=== PATIENT | female | born 1960 | race Caucasian/White ===

== ENCOUNTER 2024-04-23 15:28 | Emergency (ER) | payer OTHER, SELFPAY ==
[2024-04-23] VITALS (25 sets, daily range): BP systolic 121–163; BP diastolic 80–99; PULSE 79–94; RESP 16–20; TEMP 36.9; O2SAT 95–98; BMI 32.7
[2024-04-23] MEDS: 0.9 % SODIUM CHLORIDE 1000 ml 1,000 ML IV (16:34)
[2024-04-23] MEDS: INSULIN INF 100 UNIT/100 ML 100 UNIT/100 ML BAG 6.5 UNIT IVPB (16:35)
[2024-04-23] MEDS: INSULIN REGULAR, HUMAN 100 UNIT/ML VIAL 8 UNIT IVP (16:38)
[2024-04-23 16:45] LABS: Appearance Urine Turbid (Clear); Bilirubin Urine Negative (Negative); Blood Urine Negative (Negative); Color Urine Yellow (Yellow); Glucose Urine 2+ (Negative); Ketones Urine Trace (Negative); Leukocyte Esterase Urine Negative (Negative); Nitrite Urine Negative (Negative); Protein Urine 2+ (Negative); Specific Gravity Urine 1.015 (1.000-1.030); Urobilinogen Urine 0.2 (0.2-1.0)
[2024-04-23 16:58] LABS: HCO3 VBG 22 mmol/L (21-28); PCO2 VBG 42 mmHG (40-50); PO2 VBG 49.6 mmHG (25-47); pH VBG 7.335 (7.32-7.43)
[2024-04-23 16:59] LABS: Basophils Absolute Auto 0.03 K/uL (0.00-0.30); Basophils Percent Auto 0.4 % (0.0-3.0); Eosinophils Percent Auto 1.3 % (0.0-7.0); Hematocrit 43.5 % (33.0-51.0); Hemoglobin* 14.8 gm/dL (12.0-16.0); Immature Granulocytes Abs Auto 0.08 K/uL (0.00-0.30); Lymphocytes Absolute Auto 2.14 K/uL (0.90-2.90); Lymphocytes Percent Auto 27.4 % (20-44); Mean Corpuscular HGB Conc 34 gm/dL (32-36); Mean Corpuscular Hemoglobin 30 pg (26-34); Mean Corpuscular Volume 89 fL (80-100); Monocytes Percent Auto 6.8 % (0.0-11.0); Neutrophils Absolute Auto 4.94 K/uL (1.7-7.0); Neutrophils Percent Auto 63.1 % (42.0-72.0); Platelet Count* 202 K/uL (140-440); RDW Coefficient of Variation % 12.9 % (11.5-15.5); Red Blood Count 4.89 m/uL (4.00-5.20); White Blood Count* 7.82 K/uL (4.50-11.00)
[2024-04-23 17:04] LABS: Bacteria Urine Few; RBC Urine 0-2 (0-2); Squamous Epithelial Cell Urine Few (None-Few)
[2024-04-23 17:04] LABS: Lactate* 3.8 mmol/L (0.5-1.9)
[2024-04-23 17:05] LABS: Slide Review Reflex No
[2024-04-23 17:15] LABS: Albumin* 4.8 g/dL (3.3-5.0); Chloride* 99 mmol/L (96-114)
[2024-04-23 17:16] LABS: Potassium* 4.9 mmol/L (3.6-5.1); Sodium* 130 mmol/L (135-149)
[2024-04-23 17:18] LABS: Creatinine* 0.5 mg/dL (0.5-1.5); Est. Creatinine Clearance* 57.33; Estimated Glomerular Filt Rate 105 ml/min
[2024-04-23 17:19] LABS: Alanine Aminotransferase* 26 U/L (4-35); Alkaline Phosphatase* 138 U/L (40-150); Anion Gap 11 mEq/L (7-15); Aspartate Amino Transferase* 24 U/L (12-35); Bilirubin Direct* 0.3 mg/dL (0.0-0.5); Bilirubin Total* 1.2 mg/dL (0.1-1.5); Blood Urea Nitrogen* 28 mg/dL (7-30); Calcium* 10.4 mg/dL (8.4-10.6); Carbon Dioxide* 20 mmol/L (20-32); Magnesium* 1.9 mg/dL (1.5-2.6); Total Protein* 8.1 g/dL (6.0-8.3)
[2024-04-23 17:22] LABS: C Reactive Protein* 0.5 mg/dL (0.5-1.0)
[2024-04-23 17:31] LABS: Glucose* 473 mg/dL (60-115)
[2024-04-23 17:32] LABS: Troponin I* < 0.01 ng/mL (0.01-0.04)
[2024-04-23 17:35] LABS: PCR FLU A Negative PCR FLU A (Negative); PCR FLU B Negative PCR FLU B (Negative); PCR RSV Negative PCR RSV (Negative); SARS PCR* Negative SARS-CoV-2 (Negative)
--- NOTE | 2024-04-23 18:24 | ED.GENADULT ---
HPI - General Adult General Chief complaint: Diabetic Related Problem Stated complaint: Hyperglycemia Time Seen by Provider: 04/23/24 15:35 Source: patient Mode of arrival: ambulatory Limitations: no limitations History of Present Illness HPI narrative: 64-year-old female presenting today with generalized not feeling well. Patient states that since yesterday she has been feeling increased fatigue, malaise, achiness from head to toe. She went to the urgent care today and her blood sugar was almost 600 so she was sent to the ER for further management. Patient states that she does have a history of type 2 diabetes however has not been on any medications since July of this year. Has not been checking her sugars. She denies fevers, chills. She has been feeling nauseated, no vomiting. She denies any diarrhea. She does have a history of constipation which is not new. She denies any urinary symptoms such as increased frequency, urgency or dysuria. She denies chest pain or shortness of breath. She has no abdominal discomfort. Related Data Home Medications ?Medication ?Instructions ?Recorded ?Confirmed albuterol sulfate 90 mcg/actuation 2 puff inhalation QID PRN wheezing 04/23/24 04/23/24 aerosol inhaler Previous Rx's ?Medication ?Instructions ?Recorded insulin glargine 100 unit/mL (3 20 unit (0.2 mL) subcut QPM #15 mL 04/23/24 mL) subcutaneous pen (Lantus Solostar U-100 Insulin) Allergies Allergy/AdvReac Type Severity Reaction Status Date / Time No Known Drug Allergies Allergy Verified 04/23/24 15:40 Review of Systems Status of ROS: Reports: 10 or more systems reviewed and unremarkable except as noted in History and below PFSH PFS Social History Smoking Status: Former smoker What tobacco products do you use: cigarettes Smoking packs per day: 2 Smoking cigarettes per day: 40.0 Years smoked: 20 Smoking pack-years: 40.00 Smoking quit date/years: <= 15 years ago Do you use any of these nicotine containing products: None Second hand tobacco smoke exposure: No How often do you have a drink containing alcohol: 2-3 times a week How many standard drinks containing alcohol do you have on a typical day: 1 or 2 How often do you have six or more drinks on one occasion: Never AUDIT-C Alcohol total score: 3 Non-prescribed substance use: denies use service: No Exam Narrative: Exam Narrative: Well-nourished well-developed patient in no acute distress. Alert and oriented. Answers questions appropriately. Mood and affect are appropriate. Thoughts are goal oriented and rational. No tangential or magical thinking noted. Patient speaks in full sentences without needing to catch her breath. Patient is hemodynamically stable. HEENT: Normocephalic atraumatic. Pupils are equally round reactive to light. Extraocular muscles are intact. Conjunctivae are moist without any icterus noted. Moist mucous membranes. Posterior pharynx is normal. Neck is soft without any lymphadenopathy or thyromegaly. No masses are appreciated. Cardiovascular: Heart is regular rate and rhythm S1 and S2 are present without any murmurs. Lungs: Clear to auscultation bilaterally no wheezes rhonchi or rales are appreciated. Patient takes deep breaths without any discomfort. Abdomen: Soft and nontender nondistended with normal bowel sounds. No guarding or rebound. No masses or organomegaly appreciated. Extremities: Bilateral lower extremities are without edema. Skin: Well perfused without any obvious rashes. Const: Vital Signs, click to edit/add: Vital Signs - 24 hr 04/23/24 15:35 04/23/24 15:45 04/23/24 16:39 Temperature 98.4 F Pulse Rate 88 Pulse Rate [Pulse Oximeter] 83 Respiratory Rate 18 Blood Pressure Blood Pressure [Ri ght Upper Arm] 163/99 H Pulse Oximetry 98 98 95 Oxygen Delivery Me thod Room Air 04/23/24 16:41 04/23/24 16:45 04/23/24 17:00 Temperature Pulse Rate 84 86 84 Pulse Rate [Pulse Oximeter] Respiratory Rate 20 Blood Pressure 139/80 Blood Pressure [Ri ght Upper Arm] Pulse Oximetry 96 97 95 Oxygen Delivery Me thod 04/23/24 17:02 04/23/24 17:15 04/23/24 17:22 Temperature Pulse Rate 85 84 88 Pulse Rate [Pulse Oximeter] Respiratory Rate 16 Blood Pressure 142/90 H 160/87 H Blood Pressure [Ri ght Upper Arm] Pulse Oximetry 96 96 97 Oxygen Delivery Me thod 04/23/24 17:23 04/23/24 17:30 04/23/24 17:41 Temperature Pulse Rate 94 84 87 Pulse Rate [Pulse Oximeter] Respiratory Rate 16 Blood Pressure 155/86 H Blood Pressure [Ri ght Upper Arm] Pulse Oximetry 97 96 96 Oxygen Delivery Mo thod 04/23/24 17:45 04/23/24 18:00 04/23/24 18:02 Temperature Pulse Rate 85 84 85 Pulse Rate [Pulse Oximeter] Respiratory Rate 16 Blood Pressure 153/92 H Blood Pressure [Ri ght Upper Arm] Pulse Oximetry 96 97 [facility] 18[facility]03 04/23/24 18:15 04/23/24 18:22 Temperature Pulse Rate 83 84 84 Pulse Rate [Pulse Oximeter] Respiratory Rate 16 Blood Pressure 152/93 H Blood Pressure [Ri ght Upper Arm] Pulse Oximetry 98 97 98 [facility] 04/23/24 18:30 04/23/24 18:41 04/23/24 18:45 Temperature Pulse Rate 83 82 81 Pulse Rate [Pulse Oximeter] Respiratory Rate 16 Blood Pressure 149/88 H Blood Pressure [Ri ght Upper Arm] Pulse Oximetry 98 97 98 [facility] 04/23/24 19:00 04/23/24 19:02 04/23/24 19:02 Temperature Pulse Rate 83 81 81 Pulse Rate [Pulse Oximeter] Respiratory Rate Blood Pressure 121/85 121/85 Blood Pressure [Ri ght Upper Arm] Pulse Oximetry 96 97 97 [facility] 04/23/24 19:15 04/23/24 19:30 Temperature Pulse Rate 79 81 Pulse Rate [Pulse Oximeter] Respiratory Rate Blood Pressure Blood Pressure [Ri ght Upper Arm] Pulse Oximetry 95 97 [facility] Course ED Course: EKG, read by me, shows normal sinus rhythm with a left axis deviation, pulse is 85. Point of care glucose was 472. Patient was given a L of normal saline, insulin bolus and started on an insulin drip. CBC was normal. Venous blood gas was unremarkable. Sodium is low at 130, potassium is normal at 4.9. Remainder of chemistries are unremarkable aside from a glucose elevated at 473. Lactate is high at 3.8. Normal magnesium. Normal LFTs. Normal CRP. Normal troponin. UA positive for 2+ protein, 2+ glucose, trace ketones. Triple swab is negative. I did consult with who recommended stopping the insulin drip when sugar got closer to 200 and repeating lab work. Insulin drip was stopped when the patient's blood glucose was 272. Repeat lactate came back significantly improved at 2.3. Chemistries returned with an improved sodium of 134, potassium of 4.0. Glucose 248. Vital Signs Vital signs: Initial Vital Signs Temperature 98.4 F 04/23/24 15:35 Temperature Source Temporal Artery Scan 04/23/24 15:35 Pulse Rate 83 04/23/24 15:35 Respiratory Rate 18 04/23/24 15:35 Blood Pressure 163/99 H 04/23/24 15:35 Blood Pressure Mean 120 H 04/23/24 15:35 Blood Pressure Position Supine 04/23/24 15:35 Pulse Oximetry 98 04/23/24 15:35 Oxygen Delivery Method Room Air 04/23/24 15:35 Vital Signs Temperature 98.4 F 04/23/24 15:35 Pulse Rate 83 04/23/24 15:35 Respiratory Rate 18 04/23/24 15:35 Blood Pressure 163/99 H 04/23/24 15:35 Pulse Oximetry 98 04/23/24 15:35 Oxygen Delivery Method Room Air 04/23/24 15:35 Temperature 98.4 F 04/23/24 15:35 Pulse Rate 81 04/23/24 19:30 Respiratory Rate 16 04/23/24 18:41 Blood Pressure 121/85 04/23/24 19:02 Pulse Oximetry 97 04/23/24 19:30 Oxygen Delivery Method Room Air 04/23/24 15:35 Medications Administered Medications: Generic Name Dose Route Start Last Admin Trade Name Freq PRN Reason Stop Dose Admin Insulin Human (Reg)/Sodium Chloride 100 unit in 100 mls @ 6.5 mls/hr 04/23/24 16:15 04/23/24 18:00 Insulin Inf 100 Unit/100 Ml IVPB 0 unit/hr .[id number] MARCELA 0 mls/hr Infusion Protocol 6.5 UNIT/HR Discontinued Medications Generic Name Dose Route Start Last Admin Trade Name Freq PRN Reason Stop Dose Admin Sodium Chloride 1,000 mls @ 1,000 mls/hr 04/23/24 16:15 04/23/24 18:39 0.9 % Sodium Chloride 1000 Ml IV 04/23/24 17:14 Infused .Q1H MARCELA Infusion Insulin Human Regular 8 unit 04/23/24 16:15 04/23/24 16:38 Insulin Regular, Human 100 Unit/Ml Vial IVP 04/23/24 16:16 8 unit ONCE ONE Administration Medical Decision Making MDM Narrative Medical decision making narrative: 64-year-old female with hyperglycemia, uncontrolled diabetes type 2. Patient will be discharged home to start on Lantus. She has had metformin in the past which caused significant diarrhea. She is going to follow up with primary care provider this week to discuss ongoing management. In she was in agreement with this plan had no other questions. Lab Data Lab results reviewed: Yes I reviewed the patient's lab results Labs: Lab Results 04/23/24 04/23/24 04/23/24 Range/Units 16:20 16:33 16:45 WBC 7.82 (4.50-11.00) K/uL RBC 4.89 (4.00-5.20) m/uL Hgb 14.8 (12.0-16.0) gm/dL Hct 43.5 (33.0-51.0) % MCV 89 (80-100) fL MCH 30 (26-34) pg MCHC 34 (32-36) gm/dL RDW Coeff of Shreyas 12.9 (11.5-15.5) % Plt Count 202 (140-440) K/uL Neut % (Auto) 63.1 (42.0-72.0) % Lymph % (Auto) 27.4 (20-44) % [place] % (Auto) 6.8 (0.0-11.0) % Eos % (Auto) 1.3 (0.0-7.0) % Baso % (Auto) 0.4 (0.0-3.0) % Neut # (Auto) 4.94 (1.7-7.0) K/uL Lymph # (Auto) 2.14 (0.90-2.90) K/uL [place] # (Auto) 0.50 (0.00-0.90) K/UL Eos # (Auto) 0.10 (0.00-0.50) K/uL Baso # (Auto) 0.03 (0.00-0.30) K/uL Abs Immat Gran (auto) 0.08 (0.00-0.30) K/uL Imm/Tot Granulo (auto) 1.0 % VBG pH 7.335 (7.32-7.43) VBG pCO2 42 (40-50) mmHG VBG pO2 49.6 H (25-47) mmHG VBG HCO3 22 (21-28) mmol/L Sodium 130 L (135-149) mmol/L Potassium 4.9 (3.6-5.1) mmol/L Chloride 99 (96-114) mmol/L Carbon Dioxide 20 (20-32) mmol/L Anion Gap 11 (7-15) mEq/L BUN 28 (7-30) mg/dL Creatinine 0.5 (0.5-1.5) mg/dL Estimated Creat Clear 57.33 Estimated GFR 105 ml/min Glucose 473 H* (60-115) mg/dL Lactate 3.8 H (0.5-1.9) mmol/L Calcium 10.4 (8.4-10.6) mg/dL Magnesium 1.9 (1.5-2.6) mg/dL Total Bilirubin 1.2 (0.1-1.5) mg/dL Direct Bilirubin 0.3 (0.0-0.5) mg/dL AST 24 (12-35) U/L ALT 26 (4-35) U/L Alkaline Phosphatase 138 (40-150) U/L Troponin I < 0.01 L (0.01-0.04) ng/mL C-Reactive Protein 0.5 (0.5-1.0) mg/dL Total Protein 8.1 (6.0-8.3) g/dL Albumin 4.8 (3.3-5.0) g/dL Urine Color Yellow (Yellow) Urine Appearance Turbid A (Clear) Urine pH 5.0 (5.0-8.5) Ur Specific [place] 1.015 (1.000-1.030) Urine Protein 2+ A (Negative) Urine Glucose (UA) 2+ A (Negative) Urine Ketones Trace A (Negative) Urine Blood Negative (Negative) Urine Nitrite Negative (Negative) Urine Bilirubin Negative (Negative) Urine Urobilinogen 0.2 (0.2-1.0) Ur Leukocyte Esterase Negative (Negative) Urine RBC 0-2 (0-2) Urine WBC 5-10 A (0-5) Ur Squamous Epith Cells Few (None-Few) Urine Bacteria Few A (None) SARS-CoV-2 (PCR) Negative SARS-CoV-2 (Negative) Influenza Type A (PCR) Negative PCR FLU A (Negative) Influenza Type B (PCR) Negative PCR FLU B (Negative) RSV (PCR) Negative PCR RSV (Negative) 04/23/24 Range/Units 19:30 WBC (4.50-11.00) K/uL RBC (4.00-5.20) m/uL Hgb (12.0-16.0) gm/dL Hct (33.0-51.0) % MCV (80-100) fL MCH (26-34) pg MCHC (32-36) gm/dL RDW Coeff of Shreyas (11.5-15.5) % Plt Count (140-440) K/uL Neut % (Auto) (42.0-72.0) % Lymph % (Auto) (20-44) % [place] % (Auto) (0.0-11.0) % Eos % (Auto) (0.0-7.0) % Baso % (Auto) (0.0-3.0) % Neut # (Auto) (1.7-7.0) K/uL Lymph # (Auto) (0.90-2.90) K/uL [place] # (Auto) (0.00-0.90) K/UL Eos # (Auto) (0.00-0.50) K/uL Baso # (Auto) (0.00-0.30) K/uL Abs Immat Gran (auto) (0.00-0.30) K/uL Imm/Tot Granulo (auto) % VBG pH (7.32-7.43) VBG pCO2 (40-50) mmHG VBG pO2 (25-47) mmHG VBG HCO3 (21-28) mmol/L Sodium 134 L (135-149) mmol/L Potassium 4.0 (3.6-5.1) mmol/L Chloride 102 (96-114) mmol/L Carbon Dioxide 20 (20-32) mmol/L Anion Gap 12 (7-15) mEq/L BUN 25 (7-30) mg/dL Creatinine 0.5 (0.5-1.5) mg/dL Estimated Creat Clear 57.33 Estimated GFR 105 ml/min Glucose 248 H (60-115) mg/dL Lactate 2.3 H (0.5-1.9) mmol/L Calcium 9.8 (8.4-10.6) mg/dL Magnesium (1.5-2.6) mg/dL Total Bilirubin (0.1-1.5) mg/dL Direct Bilirubin (0.0-0.5) mg/dL AST (12-35) U/L ALT (4-35) U/L Alkaline Phosphatase (40-150) U/L Troponin I (0.01-0.04) ng/mL C-Reactive Protein (0.5-1.0) mg/dL Total Protein (6.0-8.3) g/dL Albumin (3.3-5.0) g/dL Urine Color (Yellow) Urine Appearance (Clear) Urine pH (5.0-8.5) Ur Specific [place] (1.000-1.030) Urine Protein (Negative) Urine Glucose (UA) (Negative) Urine Ketones (Negative) Urine Blood (Negative) Urine Nitrite (Negative) Urine Bilirubin (Negative) Urine Urobilinogen (0.2-1.0) Ur Leukocyte Esterase (Negative) Urine RBC (0-2) Urine WBC (0-5) Ur Squamous Epith Cells (None-Few) Urine Bacteria (None) SARS-CoV-2 (PCR) (Negative) Influenza Type A (PCR) (Negative) Influenza Type B (PCR) (Negative) RSV (PCR) (Negative) ECG Data Attestation: I personally reviewed and interpreted this ECG as follows: Discharge Plan Discharge Clinical Impression: Diabetes type 2, uncontrolled, Hyperglycemia Patient Disposition: Home, Self-Care Condition: Improved Additional Instructions: Start taking daily insulin as prescribed in the evenings. Off follow-up with your primary care provider in the next 1-3 days to discuss ongoing diabetic treatment. Prescriptions: New insulin glargine [Lantus Solostar U-100 Insulin] 100 unit/mL (3 mL) insulin pen 20 unit subcut QPM Qty: 15 0RF No Action albuterol sulfate 90 mcg/actuation HFA aerosol inhaler 2 puff INHALATION QID PRN (Reason: wheezing) Follow Up/Referrals: Jayson Cabral MD [Primary Care Provider] - Stand Alone Forms: [place] Info Instructions
[2024-04-23 19:54] LABS: Lactate* 2.3 mmol/L (0.5-1.9)
[2024-04-23 20:08] LABS: Chloride* 102 mmol/L (96-114); Sodium* 134 mmol/L (135-149)
[2024-04-23 20:10] LABS: Creatinine* 0.5 mg/dL (0.5-1.5); Est. Creatinine Clearance* 57.33; Estimated Glomerular Filt Rate 105 ml/min
[2024-04-23 20:11] LABS: Anion Gap 12 mEq/L (7-15); Blood Urea Nitrogen* 25 mg/dL (7-30); Calcium* 9.8 mg/dL (8.4-10.6); Carbon Dioxide* 20 mmol/L (20-32); Glucose* 248 mg/dL (60-115)
== END 2024-04-23 20:46 | disposition home or self-care (01) ==
PROVIDERS: Emergency Provider Family Medicine; PCP Family Medicine
DX: E11.65 Type 2 diabetes mellitus with hyperglycemia (principal)
CPT/HCPCS: 36415; 80048; 80076; 81001; 82803; 82962; 83605; 83735; 84484; 85025; 86140; 87086; 87631; 93005; 94761; 96365; 99284; J1815; J3590; J7030